=== PATIENT | female | born 1930 | race Caucasian/White ===

== ENCOUNTER → 2017-01-03 | Outpatient (CLI) | payer BC ==
--- NOTE | 2017-01-03 12:27 | DIAGNOSTIC IMAGING REPORT ---
VIDEO SWALLOW STUDY CLINICAL HISTORY: Stroke. COMPARISON STUDY: No priors. Fluoroscopy time: 2.9 minutes. FINDINGS: Fluoroscopic guidance was provided to the department of speech pathology in performing a video swallow study. The patient consumed barium-impregnated nectar thick liquid, pudding, cracker with paste, as well as thin barium while the swallowing mechanism was observed in real-time. There was aspiration with cough seen with thin barium. Aspiration was also seen with the pudding and nectar thick liquid textures. No aspiration was clearly seen with the cracker and paste texture. IMPRESSION: 1. Aspiration was seen with thin barium, nectar thick liquids, and pudding. 2. See dedicated speech pathology report for detailed findings and recommendations. Dictated: 01/03/2017 12:02 PM Transcribed: 01/03/2017 12:26 PM [facility] Electronically signed by: Feng Victoria M.D. 01/03/2017 12:27 PM Dictated Date/Time: 01/03/2017 12:02 PM
--- NOTE | 2017-01-04 14:11 | SWALLOWING EVALUATION ---
HISTORY: This 86 year old woman was referred for a video swallow study at [facility] in order to rule out aspiration and identify the safest consistencies for optimal oral intake. She is currently a resident of [facility]. The patient was recently transferred to [facility] from a SNF in the [facility]. She is currently ordered a pureed diet with nectar thick liquids, and has been found to be "sneaking" soft solids (such as cookies) and thin liquids. Per the patient and her son, she has not to their knowledge ever had a video swallow study but are questioning continued need for diet modification. No recent pneumonia. PMH is significant for: dementia, CVA, depression, dysphagia, and essential hypertension. PROCEDURE: The patient was seen in the Radiology Department of [facility] for the [facility]. Cursory examination of the oral cavity revealed upper and lower natural dentition. Molars are missing. Patient reports she wears partials but they are "getting fixed". Movement of the articulators was mildly impaired as evidenced by mild dysarthria and generalized weakness of the articulators. The patient was seated upright in a wheelchair and was viewed in both the Anterior-Posterior (A-P) and Lateral planes. Volitional phonation exercises completed in the A-P plane revealed bilateral vocal fold movement and vocal intensity was judged to be low. In the lateral plane, the patient was given the following boluses: 1 tsp. thin liquid barium x 2, single swallow thin liquid barium self-presented from a cup x2, serial swallows of thin liquid barium self-presented with a straw, 1 tsp. nectar-thick liquid barium, single swallow nectar-thick liquid barium self-presented from a cup, 1 tsp. barium pudding, and 1 club cracker coated with barium pudding. The patient was in general able to follow most direction for the study, but was noted to have decreased attention to task and impulsivity. RESULTS: Oral Stage: Lip closure was adequate. The patient was able to maintain a cohesive liquid bolus upon command during the liquid bolus hold task. Mastication was disorganized. Lingual motion for bolus transport was also repetitive and disorganized. There was trace retention lining the tongue and palate after the swallow. The initiation of the pharyngeal swallow was delayed, and triggered when the bolus head reached the pyriforms. Pharyngeal Stage: Soft palate elevation was incomplete as evidenced by a trace column of contrast being located between the soft palate and pharyngeal wall. Laryngeal elevation revealed partial superior movement of the thyroid cartilage and partial approximation of the arytenoids to the epiglottic base. Anterior hyoid excursion was partially reduced. The epiglottis at times revealed only partial inversion to the horizontal position. Laryngeal vestibular closure was incomplete, with a narrow column of contrast being located in the vestibule at the height of the swallow. The pharyngeal stripping wave was present yet diminished. Pharyngeal contraction was complete. The opening to the pharyngoesophageal segment (PES) was reduced, with partial distention and duration of the opening. Tongue base retraction was reduced, with a narrow and at times wide column of contrast noted between the tongue base and pharyngeal wall during the swallow. There was pharyngeal retention located in the valleculae, along the laryngeal aspect of the epiglottis, and in the pyriforms after the swallow was complete. The patient presented with episodes of aspiration below the vocal folds with thin and nectar thick liquids when given by the teaspoon during the bolus hold task. She also presented with aspiration below the vocal folds with pudding. All of this occurred during the swallow, with a cough reflex independently generated. The aspiration appeared to re-direct in all of these instances. There was laryngeal penetration with thin and nectar thick liquids without aspiration when accepted via cup and straw with larger boluses. Laryngeal penetration and aspiration is attributed to the patient's delayed swallowing reflex and reduced epiglottic deflection. The vallecular retention noted with solids appeared to clear somewhat with the use of a liquid wash. She is at risk for aspiration due to retention lining the laryngeal aspect of the epiglottis that would trickle to the open airway. Throat clearing was not always able to be produced and when it was it did not fully clear retention. Other strategies were not attempted due to the patient's cognitive difficulties associated with CVA and dementia. Esophageal Stage: There was complete esophageal clearance. 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 SUMMARY/RECOMMENDATIONS: This patient presents moderate emiliano-pharyngeal dysphagia. While the patient did have several episodes of aspiration during this study, the aspiration appeared to redirect. She appears to be tolerating this as she also has not had any recent pneumonia, The following is recommended: 1. Pureed diet and thin liquids. 2. Strict Aspiration precautions, No straws. Fully upright for meals and for 30 minutes following meals. Stringent oral care. Oral care, with brushing all surfaces of the mouth and tongue, to be completed at least 3 times daily to minimize oral bacteria that can be aspirated in saliva. 3. Safe swallow strategies: Slow rate, small sips from a cup. Alternate solids and liquids. May have mechanical soft snacks with direct supervision as tolerated. 4. Continued speech therapy services is HIGHLY recommended at the SNF. This is to include carryover of diet and recommendations for swallowing with the patient, family, and Nursing. Close monitoring of thin liquid tolerance would also be indicated, with lung sound and temperature checks 1 hour after p.o. intake. Liquids may require modification back to nectar consistency should she be unable to tolerate thins. A summary of the results and recommendations was discussed with the patient and her son (with patient permission) with verbal understanding. A Summary of the results was recorded on the consultation record as provided by the SNF and given to the patient immediately after the study was completed. Thank you for referral of this patient. Please contact me at if any additional information is needed.
== END | disposition home or self-care (01) ==
LOC: C.RAD 11:09
PROVIDERS: ATTEND Family Medicine
DX: I69.991 Dysphagia following unspecified cerebrovascular disease (principal); R68.89 Other general symptoms and signs; Z86.73 Personal history of transient ischemic attack (TIA), and cerebral infarction without residual deficits